=== PATIENT | male | born 2000 | race Caucasian/White ===

== ENCOUNTER 2024-02-02 08:40 | Day surgery (SDC) | payer OTHER ==
[~2024-02-02] VITALS: Ht 182.9 cm; Wt 71.8 kg
[2024-02-02] MEDS: NS 1,000 ML IV ONE (06:00)
[~2024-02-02 08:40] MED LIST: ATOM40CA9 PO; FAMO20TA5 PO; FEXO-112 PO; OMEP-173 PO; TRAZ-252 PO; ZOLO100T PO
[2024-02-02] MEDS ORDERED: fentaNYL 100 MCG/2 ML INJECTION As Ordered ONE (09:44)
[2024-02-02] MEDS ORDERED: GLYCOPYRROLATE INJ 0.2 MG/ML 2 ML VIAL As Ordered ONE (09:45)
[2024-02-02] MEDS ORDERED: propofoL 200 MG/20 ML VIAL As Ordered ONE (09:45)
[2024-02-02] MEDS ORDERED: LIDOCAINE 2% 100MG/5ML SDV (FOR ANES.) As Ordered ONE (09:45)
[2024-02-02 10:47] VITALS: TEMP 97.9
[2024-02-02 11:10] VITALS: BP 109/63; O2SAT 100
== END 2024-02-02 11:28 | disposition home or self-care (01) ==
LOC: M OPP 08:40
PROVIDERS: ATTEND Internal Medicine Gastroenterology
DX: K29.51 Unspecified chronic gastritis with bleeding (principal); K64.8 Other hemorrhoids; K64.4 Residual hemorrhoidal skin tags; K21.9 Gastro-esophageal reflux disease without esophagitis; R10.13 Epigastric pain; Z79.899 Other long term (current) drug therapy; Z88.8 Allergy status to other drugs, medicaments and biological substances; F41.9 Anxiety disorder, unspecified
CPT/HCPCS: 43239; 45378; 88305; J3010

== ENCOUNTER 2024-08-07 06:40 | Day surgery (SDC) | payer OTHER ==
[~2024-08-07] VITALS: Ht 182.9 cm; Wt 95.2 kg
[~2024-08-07 06:40] MED LIST changes: +FAMO40TA3 PO; +RISP-105 PO; +TRAZ-257 PO
[2024-08-07] MEDS ORDERED: fentaNYL 100 MCG/2 ML INJECTION As Ordered ONE (07:05)
[2024-08-07] MEDS ORDERED: propofoL 200 MG/20 ML VIAL As Ordered ONE (07:12)
[2024-08-07] MEDS ORDERED: LIDOCAINE 2% 100MG/5ML SDV (FOR ANES.) As Ordered ONE (07:12)
[2024-08-07 07:56] VITALS: TEMP 99
[2024-08-07 08:10] VITALS: BP 132/69; O2SAT 98
== END 2024-08-07 08:37 | disposition home or self-care (01) ==
LOC: M OPP 06:40
PROVIDERS: ATTEND Surgery
DX: K44.9 Diaphragmatic hernia without obstruction or gangrene (principal); K29.70 Gastritis, unspecified, without bleeding; K31.89 Other diseases of stomach and duodenum; K21.9 Gastro-esophageal reflux disease without esophagitis; R73.03 Prediabetes; F41.9 Anxiety disorder, unspecified; F90.9 Attention-deficit hyperactivity disorder, unspecified type; F32.A Depression, unspecified; Z88.8 Allergy status to other drugs, medicaments and biological substances; Z79.899 Other long term (current) drug therapy
CPT/HCPCS: 43239; 88305; 91035; J3010

== ENCOUNTER 2024-11-30 06:55 | Day surgery (SDC) | payer OTHER, SELFPAY ==
[~2024-11-30] VITALS: Ht 182.9 cm; Wt 98.9 kg
[2024-11-30 07:28] VITALS: TEMP 97.7
[2024-11-30] MEDS ORDERED: LIDOCAINE VISCOUS 2% SOLN 15ML UDC As Ordered ONE (07:35)
[2024-11-30 08:01] VITALS: BP 167/101; O2SAT 99
== END 2024-11-30 08:07 | disposition home or self-care (01) ==
LOC: M OPP 06:55
PROVIDERS: ATTEND Surgery
DX: K44.9 Diaphragmatic hernia without obstruction or gangrene (principal)

== ENCOUNTER 2024-12-13 06:10 | Day surgery (SDC) | payer OTHER, SELFPAY ==
[~2024-12-13] VITALS: Ht 182.9 cm; Wt 98.7 kg
[2024-12-13 06:43] LABS: HEMATOCRIT 49.1 % (42.0-52.0); MEAN CORPUSCULAR HEMOGLOBIN 25.4 pg (27.0-33.0); MEAN CORPUSCULAR HGB CONC 32.6 g/dl (32.0-36.5); MEAN CORPUSCULAR VOLUME 77.8 fl (80.0-96.0); PLATELET COUNT, AUTOMATED 314 10^3/uL (150-450); RED BLOOD COUNT 6.31 10^6/uL (4.30-6.10); WHITE BLOOD COUNT 7.2 10^3/uL (4.0-10.0)
[2024-12-13] MEDS ORDERED: ROCURONIUM BROMIDE 50MG/5ML VIAL As Ordered ONE (06:55)
[2024-12-13] MEDS ORDERED: LIDOCAINE 2% 100MG/5ML SDV (FOR ANES.) As Ordered ONE (06:55)
[2024-12-13] MEDS ORDERED: KETOROLAC 30 MG/ML 1ML VIAL As Ordered ONE (06:55)
[2024-12-13] MEDS ORDERED: ONDANSETRON 4MG 2ML VIAL As Ordered ONE (06:55)
[2024-12-13] MEDS ORDERED: propofoL 200 MG/20 ML VIAL As Ordered ONE (06:55)
[2024-12-13] MEDS ORDERED: SUGAMMADEX SODIUM 500 MG/5 ML VIAL (BRIDION) As Ordered ONE (06:55)
[2024-12-13] MEDS ORDERED: dexmedeTOMIDine (4MCG/ML)200MCG/50ML BTL (PRECEDEX) As Ordered ONE (06:58)
[2024-12-13] MEDS ORDERED: MIDAZOLAM INJ 2MG/2ML VIAL As Ordered ONE (07:00)
[2024-12-13] MEDS ORDERED: fentaNYL 250 MCG/5 ML INJECTION As Ordered ONE (07:00)
[2024-12-13] MEDS: LR 1,000 ML IV SCH (07:02)
[2024-12-13] MEDS: ceFAZolin SOD 2 GM IV ONCE IV ONE (07:41)
[2024-12-13] MEDS ORDERED: ACETAMINOPHEN 1000MG/100ML IV BAG As Ordered ONE (07:43)
[2024-12-13] MEDS: HEPARIN SOD (PORCINE) 5000UNITS/ML 1ML VIAL/SYRINGE SQ ONE (07:47)
[2024-12-13] MEDS ORDERED: HYDROmorphone HCL 2MG/ML 1ML VIAL As Ordered ONE (08:22)
[2024-12-13] MEDS: BUPivacaine LIPOSOME/PF 266MG 20ML VIAL (13.3MG/ML)(EXPAREL) As Ordered ONE (09:55)
[2024-12-13] MEDS ORDERED: fentaNYL 100 MCG/2 ML INJECTION IV PRN (10:15)
[2024-12-13] MEDS ORDERED: oxyCODONE 5MG TAB PO PRN (10:15)
[2024-12-13] MEDS ORDERED: SIME1CAP4 PO (10:28)
[2024-12-13] MEDS: HYDROMORPHONE HCL 0.5 MG/ 0.5 ML SYRINGE IV PRN (10:50)
[2024-12-13] MEDS ORDERED: METOPROLOL 5 MG/5 ML VIAL IV PRN (11:00)
[2024-12-13] MEDS: METOPROLOL 5 MG/5 ML VIAL IV PRN (11:14)
[2024-12-13 11:34] VITALS: BP 160/82
[2024-12-13] MEDS: ONDANSETRON 4MG 2ML VIAL IV PRN (11:46)
[2024-12-13] MEDS: PROMETHAZINE 25MG/ML 1ML VIAL IV ONE (13:02)
[2024-12-13 13:06] VITALS: BP 139/83; TEMP 98.7; O2SAT 96
== END 2024-12-13 13:13 | disposition home or self-care (01) ==
LOC: M SDC 06:10
PROVIDERS: ATTEND Surgery
DX: K44.9 Diaphragmatic hernia without obstruction or gangrene (principal); F84.0 Autistic disorder; Z88.8 Allergy status to other drugs, medicaments and biological substances; Z79.899 Other long term (current) drug therapy
CPT/HCPCS: 36415; 43280; 85027; J0131; J0665; J0666; J0690; J1100; J1171; J1885; J2250; J2405; J2550; J3010; S2900